=== PATIENT | male | born 1950 | race Caucasian/White ===

== ENCOUNTER 2016-10-05 11:37 | Emergency (ER) | payer OTHER, MEDICARE ==
--- OUTSIDE RECORDS SUMMARY | 2016-10-05 13:46 | XMS REPORT | Continuity of Care Document ---
:1950 Author Organization [facility] ([facility]) Address [address] [place] [address] Phone [phone] Care Team Providers Name Role Phone Unavailable Primary Care Provider Unavailable Source Comments This disclosure is being made pursuant to the Care Everywhere program, applicable federal and state laws, and may not contain all informaitonavailable regarding this patient.[facility] ([facility]) Active Allergies and Adverse Reactions Not on File Current Medications Not on file Active Problems Not on file Social History Tobacco Use Types Packs/Day Years Used Date Never Assessed Plan of Care Health Maintenance Due Date Last Done Comments HCV Screening 1950 Hepatitis B Vaccine (1 of 3 - Primary Series) 1950 Tdap Vaccine 08/06/1959 Lipid Disorder Screening 1966 Td Vaccine 1966 Colonoscopy 1998 Prostate Cancer Screening 1998 Zoster Vaccine 2008 Pneumococcal Vaccine (1 of 2 - PCV13) 2013 Influenza Vaccine: Seasonal (#1) 01/01/2016 Results from Last 3 Months Not on file
[2016-10-05 14:15] VITALS: BP 116/56
--- NOTE | 2016-10-05 14:22 | ERNOTE ---
ENT HPI Date of Service: 10/05/16 Presenting Symptoms: nosebleed Time Seen by Provider: 10/05/16 13:35 Source: patient Exam Limitations: no limitations - Immun/Allergies/Home Medications Immunizations: IMMUNIZATION HX Immunizations Up to Date Yes History of Influenza Vaccine Yes Hx Pneumococcal Vaccination Yes Allergies/Adverse Reactions: Allergies Allergy/AdvReac Type Severity Reaction Status Date / Time No Known Allergies Allergy Verified 10/05/16 19:17 Home Medications: HOME MEDICATIONS Dabigatran Etexilate Mesylate [Pradaxa] 75 mg PO 10/05/16 [Last Taken Unknown] - History of Present Illness Narrative: patient presents to ED for nosebleed. Date (Duration): 10/05/16 ENT Location: Present: nose Prearrival Treatment: Present: no prearrival treatment Modifying Factors - Improves: Reports: nothing Modifying Factors - Worsens: Reports: nothing Associated Symptoms - ENT: Reports: denies symptoms Review of Systems - Review of Systems Constitutional: Present: no symptoms reported. Absent: fever, chills EYE: Present: no symptoms reported. Absent: double vision ENT: Present: See HPI. Absent: nose pain, nose congestion, nasal drainage Respiratory: Present: no symptoms reported Cardiology: Present: no symptoms reported Gastrointestinal/Abdominal: Present: no symptoms reported Genitourinary: Present: no symptoms reported Musculoskeletal: Present: no symptoms reported Skin: Present: no symptoms reported Neurological: Present: no symptoms reported Endocrine: Present: no symptoms reported Hematologic/Lymphatic: Present: no symptoms reported Psych: Present: no symptoms reported - Patient's Past Medical History Patient History - Medical: Diabetes Type 2 Insulin Dependent, Obesity Patient History - Cardiac/Respiratory: Atrial Fibrillation, COPD, Hypertension, Hyperlipidemia Patient History - Cancer: No Hx of Cancer Patient History - Surgical Procedures: No surgical history Patient History - Other: None - Social History Living Situations: home Abuse History: No History of abuse Psych History: No pertinent hx Smoking Status: Former smoker Have you smoked in the past 12 months: No Alcohol Use: none Drug Use: none - Immunizations Immunizations Up to Date: Yes Hx Pneumococcal Vaccination: Yes History of Influenza Vaccine: Yes Physical Exam - Physical Exam Narrative: 66-year-old male presents to the emergency room for epistaxis. Patient states that he started perpradaxas earlier this week and is having few nasal bleed since then. Patient states that this started this morning and has not stopped. Bilateral nasal cavities are bleeding. Nothing anteriorly is seen bleeding upon inspection. blood coming posteriorly. General Appearance: Present: wd/wn, alert, no apparent distress Eye Exam: Normal inspection: bilateral Ears, Nose, Throat: Present: normal except - - nasal bleeding, nasal congestion , normal pharynx. Absent: sinus pain/drainage, pharyngeal swelling, dry mucous membranes Neck: Present: normal inspection, full range of motion Respiratory: Present: no respiratory distress, chest nontender, wheezing - patient has COPD Cardiovascular/Chest: Present: regular rate, rhythm, no murmur, normal peripheral pulses Gastrointestinal/Abdominal: Present: normal bowel sounds, soft Back Exam: Present: normal inspection, normal range of motion Extremity Exam: Present: normal inspection, normal range of motion Neurological Exam: Present: alert, oriented, normal mood/affect, no motor/ sensory deficits Skin Exam: Present: normal color, warm/dry Lymphatic Exam: Present: no adenopathy ED Progress - Vital Signs Patient's Vital Signs:: I have reviewed the patient's vital signs. Vital Signs: Vital Signs 10/05/16 10/05/16 10/05/16 12:10 13:48 14:14 Temperature 37.1 C Pulse Rate 70 74 59 L Respiratory 18 12 14 Rate Blood Pressure 119/64 162/84 116/56 O2 Sat by Pulse 93 96 92 Oximetry - Progress/Reassessment Chief Complaint: Nose Bleed Progress:: Improved Plan - Plan Plan: patient stopped bleeding after afrin nasal spray. Departure Clinical Impression: Epistaxis - Departure Disposition: Home Follow Up Needed Condition: Good Instructions: Nosebleed, [id number] Additional Instructions: Continue previous home medications directed. Go home and rest. Follow up with her ENT physician on Friday as directed. Return to emergency room if symptoms return or persist.
[2016-10-05] MEDS ORDERED: OXYMETAZOLINE HCL 150 SPRAY BTL ONE (14:39)
[2016-10-05] MEDS ORDERED: OXYMETAZOLINE HCL 150 SPRAY BTL NS ONE (14:40)
== END 2016-10-05 14:55 | disposition home or self-care (01) ==
LOC: ER 11:37
DX: R04.0 Epistaxis (principal); Z87.891 Personal history of nicotine dependence

== ENCOUNTER 2016-10-05 19:07 | Emergency (ER) | payer MEDICARE, OTHER ==
[2016-10-05] MEDS ORDERED: CEPHALEXIN MONOHYDRATE 250 MG CAPSULE ONE (19:58)
[2016-10-05] MEDS ORDERED: CEPHALEXIN MONOHYDRATE 250 MG CAPSULE PO ONE (20:00)
--- NOTE | 2016-10-05 20:06 | ERNOTE ---
ENT HPI Presenting Symptoms: nosebleed Time Seen by Provider: 10/05/16 20:01 Source: patient Exam Limitations: no limitations - Immun/Allergies/Home Medications Immunizations: IMMUNIZATION HX Immunizations Up to Date Yes History of Influenza Vaccine Yes Hx Pneumococcal Vaccination Yes Allergies/Adverse Reactions: Allergies Allergy/AdvReac Type Severity Reaction Status Date / Time No Known Allergies Allergy Verified 10/05/16 19:17 Home Medications: HOME MEDICATIONS Unobtainable 02/11/16 [Last Taken Unknown] - History of Present Illness Narrative: pt returns to our facility for persistent nose bleed. He was seen earlier and had a nose bleed and had a rhinorocket placed which subsequently fell out. He denies any headache or blurry vision.He is on Pradaxa for A. fib.Bleeding is from left nare Review of Systems - Review of Systems Constitutional: Present: no symptoms reported EYE: Present: no symptoms reported ENT: Present: See HPI Respiratory: Present: no symptoms reported Cardiology: Present: no symptoms reported Gastrointestinal/Abdominal: Present: no symptoms reported Genitourinary: Present: no symptoms reported Musculoskeletal: Present: no symptoms reported Skin: Present: no symptoms reported - Patient's Past Medical History Patient History - Medical: Diabetes Type 2 Insulin Dependent, Obesity Patient History - Cardiac/Respiratory: Atrial Fibrillation, COPD, Hypertension, Hyperlipidemia Patient History - Cancer: No Hx of Cancer Patient History - Surgical Procedures: No surgical history Patient History - Other: None - Social History Living Situations: other Abuse History: No History of abuse Psych History: No pertinent hx Smoking Status: Former smoker Have you smoked in the past 12 months: No Do you dip or chew tobacco: No Alcohol Use: none Drug Use: none - Immunizations Immunizations Up to Date: Yes Hx Pneumococcal Vaccination: Yes History of Influenza Vaccine: Yes Physical Exam - Physical Exam General Appearance: Present: wd/wn, alert, no apparent distress Eye Exam: Normal inspection: bilateral, PERRL: bilateral, EOMI: bilateral Ears, Nose, Throat: Present: other - pt has tissue packed into both nares. there is no active bleeding going on at this time. Upon removal of tissue I see clots in left nare but none in right nare Neck: Present: normal inspection, nontender, supple Respiratory: Present: no respiratory distress, normal breath sounds, no accessory muscle use, chest nontender, lungs clear Cardiovascular/Chest: Present: no murmur, normal peripheral pulses, irregularly irregular Gastrointestinal/Abdominal: Present: other - obese yet benign Neurological Exam: Present: alert, oriented, normal mood/affect, no motor/ sensory deficits ED Progress - Vital Signs Patient's Vital Signs:: I have reviewed the patient's vital signs. Vital Signs: Vital Signs 10/05/16 10/05/16 10/05/16 12:10 14:14 19:11 Temperature 37.1 C 37.1 C Pulse Rate 92 Respiratory 22 H Rate Blood Pressure 116/56 123/52 O2 Sat by Pulse 91 Oximetry - Progress/Reassessment Chief Complaint: Nose Bleed Plan - Plan Plan: One rhinorocket was placed in each nare with good success. Pt will be given Keflex and sent to ENT on Friday. Pt tolerated procedure well and no bleeding continued Departure Clinical Impression: Epistaxis, recurrent - Departure Disposition: Home self-care Condition: Good Instructions: Nosebleed, [id number]
--- OUTSIDE RECORDS SUMMARY | 2016-10-05 20:14 | XMS REPORT | Continuity of Care Document ---
:1950 Author Organization [facility] ([facility]) Address [address] [place] [address] Phone [phone] Care Team Providers Name Role Phone Unavailable Primary Care Provider Unavailable Source Comments This disclosure is being made pursuant to the Care Everywhere program, applicable federal and state laws, and may not contain all informaitonavailable regarding this patient.[facility] ([facility]) Active Allergies and Adverse Reactions Not on [...]
[2016-10-05] MEDS ORDERED: OXYMETAZOLINE HCL 150 SPRAY BTL ONE (20:58)
[2016-10-05] MEDS ORDERED: LIDOCAINE HCL/EPINEPHRINE 30 ML VIAL IJ ONE (21:00)
[2016-10-05 23:10] VITALS: BP 124/80
== END 2016-10-05 23:28 | disposition left against medical advice (07) ==
LOC: ER 19:07
PROC: 2Y41X5Z Packing of Nasal Region using Packing Material (ICD-10-PCS; principal; 2016-10-05)
DX: R04.0 Epistaxis (principal); Z87.891 Personal history of nicotine dependence; Z53.29 Procedure and treatment not carried out because of patient's decision for other reasons

== ENCOUNTER 2016-10-16 00:06 | Emergency (ER) | payer MEDICARE ==
--- OUTSIDE RECORDS SUMMARY | 2016-10-16 01:07 | XMS REPORT | Continuity of Care Document ---
:1950 Author Organization [facility] ([facility]) [place] [address] Phone [phone] Care Team Providers Name Role Phone Unavailable Primary Care Provider Unavailable Source Comments This disclosure is being made pursuant to the Care Everywhere program, applicable federal and state laws, and may not contain all informaitonavailable regarding this patient.[facility] ([facility]) Active Allergies and Adverse Reactions Not on File Current Medications Not on file Active Problems Not on file Most Recent Encounters Date Type Specialty Providers Description 10/05/2016 Hospital Encounter Patient Services Jw Curtis MD Lee, Sangil, MD Social History Tobacco Use Types Packs/Day Years [...] 2 - PCV13) 2013 Influenza Vaccine: Seasonal (Season Ended) 2016 Results from Last 3 Months Not on file
[2016-10-16] MEDS ORDERED: PHENYLEPHRINE HCL 150 SPRAY BTL NS ONE ×2 (01:09→01:11)
--- NOTE | 2016-10-16 01:10 | ERNOTE ---
ENT HPI Presenting Symptoms: nosebleed Time Seen by Provider: 10/16/16 01:00 Source: patient Exam Limitations: no limitations - Immun/Allergies/Home Medications Immunizations: IMMUNIZATION HX Immunizations Up to Date Yes History of Influenza Vaccine Yes Hx Pneumococcal Vaccination Yes Allergies/Adverse Reactions: Allergies Allergy/AdvReac Type Severity Reaction Status Date / Time No Known Allergies Allergy Verified 10/16/16 00:27 Home Medications: HOME MEDICATIONS Dabigatran Etexilate Mesylate [Pradaxa] 75 mg PO DAILY 10/05/16 [Last Taken Unknown] - History of Present Illness Narrative: Pt placed on pradaxa 4 weeks ago and has had multiple nosebleeds since that time. He went to the [place] in [place] last week and was cauterized which has helped for only a short time. This evening he began to bleed - Patient's Past Medical History Patient History - Medical: Diabetes Type 2 Insulin Dependent, Obesity Patient History - Cardiac/Respiratory: Atrial Fibrillation, COPD, Hypertension, Hyperlipidemia Patient History - Cancer: No Hx of Cancer Patient History - Surgical Procedures: No surgical history Patient History - Other: None - Social History Living Situations: other Abuse History: No History of abuse Psych History: No pertinent hx Smoking Status: Former smoker Alcohol Use: none Drug Use: none - Immunizations Immunizations Up to Date: Yes Hx Pneumococcal Vaccination: Yes History of Influenza Vaccine: Yes Physical Exam - Physical Exam Ears, Nose, Throat: Present: other - blood in bilateral nasal pasages, more fresh blood in left. no active bleeding source found Neck: Present: normal inspection, nontender Respiratory: Present: no respiratory distress ED Progress - Vital Signs Vital Signs: Vital Signs 10/16/16 00:23 Temperature 36.8 C Pulse Rate 102 H Respiratory 20 Rate Blood Pressure 117/56 O2 Sat by Pulse 95 Oximetry - Progress/Reassessment Chief Complaint: Nose Bleed Progress:: Unchanged Progress Note-Subjective: 10/16/16 02:11 bleeding increased again despite treatment with loly-synephrine nasal spray. left nasal passage packed with gauze soaked with lidocaine with epi. in preparation for attempt a cauterization. 10/16/16 03:00 With removal of above packing a large clot was removed and the nasal passage was better visualized. A small hole was noted near the base of the septum on the left approx 1 cm into the nasal passage. the hole was filled with blood and initially appeared to be a source of bleeding, attempted to cauterize this hole but it was too small to get the tip of the silver nitrate stick into. upon futher exploration and cleaning of nasal passage I could see the blood coming from futher posterior and flowing into this hole. after a couple of tries at cauterizing apparent sources he continued to bleed from a more posterior source 10/16/16 03:36 Rapid rhino 5.5 cm packing was inserted into the left nasal passage and inflated to a comfortable tension. No bleeding was seen anteriorly. Procedures Comments: Rapid rhino 5.5 cm nasal pack was soaked in sterile saline and then inserted into the left nasal passage and balloon was filled with 7 ml of air. Pt tolerated procedure well and epistaxis was stopped. Departure Clinical Impression: Epistaxis, recurrent - Departure Disposition: Home Follow Up Needed Condition: Good Instructions: Nosebleed, [id number] Additional Instructions: See your regular doctor or ENT specialist for removal of the packing within 2-3 days
[2016-10-16] MEDS ORDERED: LIDOCAINE HCL/EPINEPHRINE 30 ML VIAL IJ ONE (02:02)
[2016-10-16] MEDS ORDERED: ALBUTEROL SULFATE/IPRATROPIUM 3 ML NEBU IH ONE ×2 (03:11→03:12)
[2016-10-16 04:19] VITALS: BP 108/61
== END 2016-10-16 04:18 | disposition home or self-care (01) ==
LOC: ER 00:06
PROC: 0W3Q7ZZ Control Bleeding in Respiratory Tract, Via Natural or Artificial Opening (ICD-10-PCS; principal; 2016-10-16)
DX: R04.0 Epistaxis (principal); I48.91 Unspecified atrial fibrillation; Z79.01 Long term (current) use of anticoagulants; Z87.891 Personal history of nicotine dependence